=== PATIENT | male | born 2000 | race Caucasian/White ===

== ENCOUNTER 2020-05-30 15:48 | Emergency (ER) | payer SELFPAY ==
[~2020-05-30] VITALS: Ht 182.9 cm; Wt 68.1 kg
[2020-05-30 16:36] LABS: ALBUMIN 4.2 g/dL (3.4-5.0); ANION GAP 4 mmol/L (5-15); CHLORIDE 107 mmol/L (98-107)
[2020-05-30 16:40] LABS: ALANINE AMINOTRANSFERASE 42 U/L (12-78); ALKALINE PHOSPHATASE 119 U/L (45-117); BILIRUBIN,TOTAL 0.8 mg/dL (0.2-1.0); CREATININE 0.87 mg/dL (0.7-1.3); TOTAL PROTEIN 7.5 g/dL (6.4-8.2)
[2020-05-30 16:45] LABS: BASOPHILS % (AUTO) 0 % (0-1); EOSINOPHILS % (AUTO) 1 % (1-7); LYMPHOCYTES % (AUTO) 20 % (22-44); MEAN CORPUSCULAR HEMOGLOBIN 31.5 pg (27.5-34.5); MEAN CORPUSCULAR HGB CONC 34.1 g/dL (33.2-36.2); MEAN PLATELET VOLUME 8.7 fL (7.4-10.4); MONOCYTES % (AUTO) 16 % (2-9); NEUTROPHILS % (AUTO) 63 % (42-75); PLATELET COUNT 275 x10^3/uL (130-400); RED BLOOD COUNT 5.23 x10^6/uL (4.38-5.82); RED CELL DISTRIBUTION WIDTH 12.4 % (9.4-14.8)
[2020-05-30 16:46] LABS: MD NO
--- NOTE | 2020-05-30 18:48 | NUR ---
PT AMBULATED STEADILY TO ROOM FROM [facility]
[2020-05-30 19:05] VITALS: BP 120/83
[2020-05-30] MEDS ORDERED: CEFTRIAXONE PMX 1GM/50ML 50 ML ONE (19:30)
== END 2020-05-30 19:22 | disposition home or self-care (01) ==
LOC: ED 19:15
DX: U07.1 COVID-19 (principal)
CPT/HCPCS: 36415; 71045; 80053; 85025; 87635; 99284

== ENCOUNTER 2020-06-17 02:51 | Emergency (ER) | payer MEDICAID, OTHER ==
[~2020-06-17] VITALS: Ht 182.9 cm; Wt 78.2 kg
[2020-06-17] MEDS ORDERED: DEXAMETHASONE 4 MG TABLET ONE (03:13)
[2020-06-17] MEDS ORDERED: DEXAMETHASONE 4 MG TABLET PO ONE (03:30)
--- NOTE | 2020-06-17 03:57 | NUR ---
waiting for rapid strep, then dc.
[2020-06-17 04:00] VITALS: BP 135/78
--- NOTE | 2020-06-17 04:03 | NUR ---
Sleeping, RR equal and unlabored. Will continue to monitor.
== END 2020-06-17 04:16 | disposition home or self-care (01) ==
LOC: ED 04:10
DX: J02.9 Acute pharyngitis, unspecified (principal); R13.10 Dysphagia, unspecified
CPT/HCPCS: 87081; 87880; 99283